=== PATIENT | male | born 1970 | race Caucasian/White ===

== ENCOUNTER → 2023-09-30 | Outpatient (CLI) | payer OTHER ==
--- NOTE | 2023-10-01 08:05 | XR ---
EXAMINATION TYPE: XR Hip Bilateral Complete DATE OF EXAM: 09/30/2023 4:16 PM CLINICAL INDICATION:Male, 53 years old with history of M54.50 Mid-Low back pain M25.559 Bilat hip valery n; [facility] COMPARISON: None. TECHNIQUE: XR Hip Bilateral Complete; hip was examined in the frontal and lateral projections and a A P pelvis. FINDINGS: No evidence for acute process, joint dislocation or significant soft tissue swelling. Osteo phyte formation of the superior acetabulum of the hip. Bilateral hip joint space narrowing. IMPRESSION: 1. No evidence for acute process. 2. Moderate hip osteoarthrosis.
--- NOTE | 2023-10-01 08:06 | XR ---
EXAMINATION TYPE: XR thoracic spine complete, XR lumbar spine 2 or 3V DATE OF EXAM: 09/30/2023 4:16 PM CLINICAL INDICATION:Male, 53 years old with history of M54.50 Mid-Low back pain M25.559 Bilat hip valery n; [facility] COMPARISON: None TECHNIQUE: XR thoracic spine complete, XR lumbar spine 2 or 3V views of the spine in Frontal and late ral projections. FINDINGS: No evidence of acute fracture. There is scattered multilevel disk space narrowing without loss of ve rtebral body height. There is normal alignment of the thoracic vertebral bodies. Scattered osteophyte formation along the anterior and lateral aspects of the vertebral bodies. Neural foramen are patent given limitations of this exam. Spinal canal appears patent. Atherosclerosis of the arterial vasculat ure. IMPRESSION: 1. No acute osseous pathology. 2. 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
== END | disposition home or self-care (01) ==
LOC: RADXRMAIN 15:18
PROVIDERS: ATTEND Internal Medicine
DX: M16.0 Bilateral primary osteoarthritis of hip (principal); M51.36 Other intervertebral disc degeneration, lumbar region
CPT/HCPCS: 72072; 72100; 73521